=== PATIENT | male | born 1990 | race Two or more races ===

== ENCOUNTER 2021-02-18 09:19 | Inpatient (IN) | payer MEDICAID ==
[~2021-02-18] VITALS: Ht 177.8 cm; Wt 68.0 kg
[2021-02-18] MEDS ORDERED: ZOLPIDEM TARTRATE 10 MG TABLET PO PRN (13:30)
[2021-02-18] MEDS ORDERED: ACETAMINOPHEN 325 MG TABLET PO PRN (13:30)
[2021-02-18] MEDS ORDERED: MAG HYDROX/AL HYDROX/SIMETH ES 30 ML SUSPENSION UDCUP PO PRN (13:30)
[2021-02-18] MEDS ORDERED: TUBERCULIN, PURIFIED PROTEIN DERIVATIVE 5 TU/0.1 ML SYRINGE ID ONE (13:30)
[2021-02-18] MEDS ORDERED: LORazepam 2 MG TABLET PO PRN (13:30)
[2021-02-18] MEDS ORDERED: HydrOXYzine PAMOATE 50 MG CAPSULE PO PRN (13:30)
[2021-02-18] MEDS ORDERED: LOPERAMIDE HCL 2 MG CAPSULE PO PRN (13:30)
[2021-02-18] MEDS ORDERED: PROMETHAZINE HCL 25 MG TABLET PO PRN (13:30)
[2021-02-18] MEDS ORDERED: GuaiFENesin/D-METHORPHAN [SUGAR-FREE] 200-20MG/10 ML SYRUP UDCUP PO PRN (13:30)
[2021-02-18] MEDS ORDERED: MAGNESIUM HYDROXIDE SUSPENSION 30 ML UDCUP PO PRN (13:30)
[2021-02-18] MEDS ORDERED: OLANZapine 5 MG RAPDIS TABLET PO PRN (13:30)
[2021-02-18] MEDS ORDERED: HALOPERIDOL LACTATE 5 MG/ML VIAL IM ONE (13:45)
[2021-02-18] MEDS ORDERED: DiphenhydrAMINE HCL 50 MG/ML VIAL IM ONE (13:45)
[2021-02-18] MEDS ORDERED: LORazepam 2 MG/ML VIAL IM ONE (13:45)
[2021-02-18 15:11] LABS: BASOPHILS % (AUTO) 1.1 % (0.0-2.0); HEMATOCRIT 43.6 % (41-53); HEMOGLOBIN 14.4 g/dL (13.5-17.5); LYMPHOCYTES # (AUTO) 1.1 K/uL (1.0-4.8); LYMPHOCYTES % (AUTO) 27.5 % (22.0-44.0); MEAN CORPUSCULAR HEMOGLOBIN 29.1 pg (26.0-34.0); MEAN CORPUSCULAR HGB CONC 33.1 G/dL (31.0-37.0); MEAN CORPUSCULAR VOLUME 88 fL (80-100); MONOCYTES # (AUTO) 0.4 K/uL (0.1-1.0); MONOCYTES % (AUTO) 10.7 % (2.0-9.0); NEUTROPHILS # (AUTO) 2.5 K/uL (1.8-7.7); NEUTROPHILS % (AUTO) 59.7 % (40.0-70.0); PLATELET COUNT (AUTO) 237 K/uL (150-450); RED BLOOD CELL COUNT(AUTO) 4.96 MIL/uL (4.50-5.90); RED CELL DISTRIBUTION WIDTH 14.5 % (11.5-14.5)
[2021-02-18 15:20] LABS: ANION GAP 7 mmol/L (8-16); CALCIUM, TOTAL 8.5 mg/dL (8.8-10.5); CARBON DIOXIDE 29 mmol/L (22-29); CHLORIDE 101 mmol/L (98-107); CREATININE 0.72 mg/dL (0.60-1.30); GLOMERULAR FILTR. RATE CALC > 60 mL/min (>60); GLUCOSE,RANDOM 88 mg/dL (70-110); POTASSIUM 3.3 mmol/L (3.5-5.1); SODIUM SERUM 137 mmol/L (136-145); UREA NITROGEN, BLOOD 8 mg/dL (7-18)
[2021-02-18 15:26] LABS: ALANINE AMINOTRANSFERASE 15 U/L (12-78); ALKALINE PHOSPHATASE 52 U/L (46-116); ASPARTATE AMINOTRANSFERASE 14 U/L (15-37); BILIRUBIN,TOTAL 0.6 mg/dL (0.1-1.0)
[2021-02-18] MEDS: THIAMINE 100 MG TABLET PO SCH ×2 (17:00→20:58)
[2021-02-18 17:01] LABS: COVID AG,FIA SOURCE NASOPHARYNGEAL
[2021-02-18 18:12] VITALS: BP 94/61
[2021-02-18] MEDS ORDERED: POTASSIUM CHLORIDE 20 MEQ ER TABLET PO ONE (18:30)
[2021-02-18] MEDS: MELATONIN 5 MG TABLET PO SCH (20:58)
[2021-02-18] MEDS: OLANZapine 5 MG RAPDIS TABLET PO SCH (21:00)
[2021-02-19] MEDS: OMEGA-3/DHA/EPA/FISH OIL 1,000 MG CAPSULE PO SCH (09:00)
[2021-02-19] MEDS: FOLIC ACID 1 MG TABLET PO SCH (09:00)
[2021-02-19] MEDS: NALTREXONE HCL 50 MG TABLET PO SCH (09:00)
[2021-02-19] MEDS: MULTIVITAMINS WITH MINERALS, THERAPEUTIC TABLET PO SCH (09:00)
[2021-02-19] MEDS: THIAMINE 100 MG TABLET PO SCH ×2 (09:00→17:00)
[2021-02-19] MEDS ORDERED: POTASSIUM CHLORIDE 20 MEQ ER TABLET PO ONE (09:00)
[2021-02-19 16:07] VITALS: BP 109/66
[2021-02-19] MEDS: MELATONIN 5 MG TABLET PO SCH (20:40)
[2021-02-19] MEDS: OLANZapine 5 MG RAPDIS TABLET PO SCH (20:40)
[2021-02-20 08:00] VITALS: BP 137/88
[2021-02-20] MEDS: THIAMINE 100 MG TABLET PO SCH ×3 (09:00→15:57)
[2021-02-20] MEDS: OMEGA-3/DHA/EPA/FISH OIL 1,000 MG CAPSULE PO SCH ×2 (09:00→09:48)
[2021-02-20] MEDS: NALTREXONE HCL 50 MG TABLET PO SCH ×2 (09:00→09:47)
[2021-02-20] MEDS: FOLIC ACID 1 MG TABLET PO SCH ×2 (09:00→09:48)
[2021-02-20] MEDS: MULTIVITAMINS WITH MINERALS, THERAPEUTIC TABLET PO SCH ×2 (09:00→09:49)
[2021-02-20 16:46] VITALS: BP 102/71
[2021-02-20] MEDS ORDERED: OLAN5TAB30 PO (19:23)
[2021-02-20] MEDS ORDERED: NALT50TA PO (19:23)
[2021-02-20] MEDS: OLANZapine 5 MG RAPDIS TABLET PO SCH (20:46)
[2021-02-20] MEDS: MELATONIN 5 MG TABLET PO SCH (20:46)
[2021-02-21 08:56] VITALS: BP 125/82
[2021-02-21] MEDS: MULTIVITAMINS WITH MINERALS, THERAPEUTIC TABLET PO SCH (09:00)
[2021-02-21] MEDS: NALTREXONE HCL 50 MG TABLET PO SCH (09:00)
[2021-02-21] MEDS: OMEGA-3/DHA/EPA/FISH OIL 1,000 MG CAPSULE PO SCH (09:00)
[2021-02-21] MEDS: THIAMINE 100 MG TABLET PO SCH (09:00)
[2021-02-21] MEDS: FOLIC ACID 1 MG TABLET PO SCH (09:00)
== END 2021-02-21 12:00 | disposition home or self-care (01) | DRG 750 ==
LOC: EMS 09:19 → 3EC 13:28
PROVIDERS: ADMIT Psychiatry & Neurology Psychiatry; ATTEND Psychiatry & Neurology Psychiatry
DX: F20.0 Paranoid schizophrenia (principal); Z91.14 Patient's other noncompliance with medication regimen; F15.10 Other stimulant abuse, uncomplicated; Z87.891 Personal history of nicotine dependence; Z79.899 Other long term (current) drug therapy
CPT/HCPCS: 80053; 85025; 87426; 99291; A9575; G0480; J1200; J1630; J2060

== ENCOUNTER 2025-08-18 17:21 | Emergency (ER) | payer MEDICAID, OTHER ==
[~2025-08-18] VITALS: Ht 172.7 cm; Wt 75.0 kg
[~2025-08-18 17:21] MED LIST: NALT50TA6 PO; OLAN5TAB30 PO
[2025-08-18 17:56] VITALS: BP 155/88; PULSE 100; RESP 22; TEMP 97.7; O2SAT 100
== END 2025-08-18 18:20 ==
LOC: EMS 17:25
DX: F41.9 Anxiety disorder, unspecified (principal); R06.02 Shortness of breath; F15.90 Other stimulant use, unspecified, uncomplicated; Z79.899 Other long term (current) drug therapy; Z65.3 Problems related to other legal circumstances
CPT/HCPCS: 99283; Z7502